=== PATIENT | female | born 1950 | race Caucasian/White ===

== ENCOUNTER → 2016-03-29 | Outpatient (CLI) | payer MEDICARE | LOC: M ADAMS 09:20 | PROVIDERS: ATTEND Nurse Practitioner Family | DX: E11.9 Type 2 diabetes mellitus without complications (principal); E78.2 Mixed hyperlipidemia ==

== ENCOUNTER → 2016-08-19 | Outpatient (REF) | payer MEDICARE ==
[2016-08-19 22:13] LABS: ALBUMIN 3.6 GM/DL (3.2-5.2); ALBUMIN/GLOBULIN RATIO 1.13 (1.00-1.93); ALKALINE PHOSPHATASE 47 U/L (45-117); ALT/SGPT 22 U/L (12-78); ANION GAP 7 MEQ/L (8-16); AST/SGOT 16 U/L (15-37); BILIRUBIN,TOTAL 0.3 MG/DL (0.2-1.0); BLOOD UREA NITROGEN 21 MG/DL (7-18); CALCIUM LEVEL 9.1 MG/DL (8.8-10.2); CARBON DIOXIDE LEVEL 31 MEQ/L (21-32); CHLORIDE LEVEL 103 MEQ/L (98-107); CREATININE FOR GFR 0.94 MG/DL (0.55-1.02); GLOMERULAR FILTRATION RATE > 60.0 (>45); GLUCOSE, FASTING 90 MG/DL (80-110); POTASSIUM SERUM 3.9 MEQ/L (3.5-5.1); SODIUM LEVEL 141 MEQ/L (136-145); TOTAL PROTEIN 6.8 GM/DL (6.4-8.2)
== END ==
LOC: M SFHCPLAZ 14:32
PROVIDERS: ATTEND Nurse Practitioner Family
DX: I10 Essential (primary) hypertension (principal); E11.9 Type 2 diabetes mellitus without complications

== ENCOUNTER → 2017-08-31 | Outpatient (REF) | payer MEDICARE ==
[2017-08-31 13:00] LABS: ALBUMIN 3.9 GM/DL (3.2-5.2); ALBUMIN/GLOBULIN RATIO 1.26 (1.00-1.93); ALKALINE PHOSPHATASE 43 U/L (45-117); ALT/SGPT 21 U/L (12-78); ANION GAP 8 MEQ/L (8-16); AST/SGOT 13 U/L (7-37); BILIRUBIN,TOTAL 0.4 MG/DL (0.2-1.0); BLOOD UREA NITROGEN 21 MG/DL (7-18); CALCIUM LEVEL 9.4 MG/DL (8.8-10.2); CARBON DIOXIDE LEVEL 28 MEQ/L (21-32); CHLORIDE LEVEL 106 MEQ/L (98-107); CHOLESTEROL LEVEL 218 MG/DL (<200); CHOLESTEROL RISK RATIO 3.694 (<5); CREATININE FOR GFR 0.87 MG/DL (0.55-1.30); FREE T4 1.26 NG/DL (0.76-1.46); GLOMERULAR FILTRATION RATE > 60.0 (>45); GLUCOSE, FASTING 99 MG/DL (70-100); HDL CHOLESTEROL 59 MG/DL (>40); LDL CHOLESTEROL 132.2 MG/DL (<100); NON-HDL-C 159 MG/DL; POTASSIUM SERUM 4.3 MEQ/L (3.5-5.1); SODIUM LEVEL 142 MEQ/L (136-145); TRIGLYCERIDES LEVEL 134 MG/DL (<150)
[2017-08-31 13:25] LABS: MALB URINE SIEMENS 49.2 MG/L
[2017-08-31 13:43] LABS: ESTIMATED AVERAGE GLUCOSE 131 MG/DL (60-110); HEMOGLOBIN A1c 6.2 %
== END ==
LOC: M SFHCADAM 07:58
DX: E11.9 Type 2 diabetes mellitus without complications (principal); E03.9 Hypothyroidism, unspecified; E78.2 Mixed hyperlipidemia; E55.9 Vitamin D deficiency, unspecified
CPT/HCPCS: 84443

== ENCOUNTER → 2017-09-30 | Outpatient (CLI) | payer MEDICARE ==
[2017-09-30 11:01] LABS: HEMATOCRIT 42.5 % (36.0-47.0); HEMOGLOBIN 14.4 g/dl (12.0-15.5); MEAN CORPUSCULAR HEMOGLOBIN 30.3 pg (27.0-33.0); MEAN CORPUSCULAR HGB CONC 33.9 g/dl (32.0-36.5); MEAN CORPUSCULAR VOLUME 89.3 fl (80.0-96.0); PLATELET COUNT, AUTOMATED 232 10^3/uL (150-450); RED BLOOD COUNT 4.76 10^6/uL (4.00-5.40); RED CELL DISTRIBUTION WIDTH 13.7 % (11.5-14.5); WHITE BLOOD COUNT 8.2 10^3/uL (4.0-10.0)
[2017-09-30 11:19] LABS: INR 1.03; PROTHROMBIN TIME 13.6 SECONDS (12.1-14.4)
[2017-09-30 11:21] LABS: ERYTHROCYTE SEDIMENTATION RATE 7 mm/hr (0-30)
[2017-09-30 11:32] LABS: ALBUMIN/GLOBULIN RATIO 1.21 (1.00-1.93); ALKALINE PHOSPHATASE 38 U/L (45-117); ALT/SGPT 21 U/L (12-78); ANION GAP 9 MEQ/L (8-16); AST/SGOT 17 U/L (7-37); BILIRUBIN,TOTAL 0.6 MG/DL (0.2-1.0); BLOOD UREA NITROGEN 22 MG/DL (7-18); CALCIUM LEVEL 9.2 MG/DL (8.8-10.2); CARBON DIOXIDE LEVEL 28 MEQ/L (21-32); CHLORIDE LEVEL 105 MEQ/L (98-107); CREATININE FOR GFR 0.74 MG/DL (0.55-1.30); GLOMERULAR FILTRATION RATE > 60.0 (>45); GLUCOSE, FASTING 101 MG/DL (70-100); POTASSIUM SERUM 3.6 MEQ/L (3.5-5.1); SODIUM LEVEL 142 MEQ/L (136-145); TOTAL PROTEIN 7.3 GM/DL (6.4-8.2)
== END ==
LOC: M ADMPAT 09:18
DX: Z01.818 Encounter for other preprocedural examination (principal); M17.12 Unilateral primary osteoarthritis, left knee; I10 Essential (primary) hypertension; E11.9 Type 2 diabetes mellitus without complications; E03.9 Hypothyroidism, unspecified
CPT/HCPCS: 71046

== ENCOUNTER → 2017-10-07 | Outpatient (REF) | payer MEDICARE | LOC: M SFHCPLAZ 14:26 | DX: Z01.818 Encounter for other preprocedural examination (principal); M17.12 Unilateral primary osteoarthritis, left knee; I48.91 Unspecified atrial fibrillation | CPT/HCPCS: 84443 ==

== ENCOUNTER → 2017-10-11 | Outpatient (CLI) | payer MEDICARE | LOC: M CARPUL 11:51 | DX: I48.91 Unspecified atrial fibrillation (principal) | CPT/HCPCS: 93306 ==

== ENCOUNTER → 2017-10-27 | Outpatient (CLI) | payer MEDICARE ==
[2017-10-27 16:09] LABS: BASO # 0.1 10^3/uL (0.0-0.2); BASO % 1.1 % (0.0-1.0); EOS # 0.2 10^3/uL (0.0-0.50); HEMATOCRIT 40.9 % (36.0-47.0); HEMOGLOBIN 13.7 g/dl (12.0-15.5); IMMATURE GRANULOCYTE % 0.5 % (0-3.0); LYMPH # 2.6 10^3/uL (1.5-4.5); LYMPH % 31.3 % (24.0-44.0); MEAN CORPUSCULAR HEMOGLOBIN 30.5 pg (27.0-33.0); MEAN CORPUSCULAR HGB CONC 33.5 g/dl (32.0-36.5); MEAN CORPUSCULAR VOLUME 91.1 fl (80.0-96.0); MONO # 0.7 10^3/uL (0.0-0.8); MONO % 7.9 % (0.0-5.0); NEUTROPHILS # 4.7 10^3/uL (1.8-7.7); NEUTROPHILS % 57.2 % (36.0-66.0); PLATELET COUNT, AUTOMATED 207 10^3/uL (150-450); RED BLOOD COUNT 4.49 10^6/uL (4.00-5.40); RED CELL DISTRIBUTION WIDTH 13.9 % (11.5-14.5); WHITE BLOOD COUNT 8.2 10^3/uL (4.0-10.0)
[2017-10-27 16:23] LABS: D-DIMER QUANT 371.9 ng/ml (<500)
[2017-10-27 16:29] LABS: C REACTIVE PROTEIN QUANTITATIV < 0.30 MG/DL (0.00-0.30)
[2017-10-27 16:29] LABS: TROPONIN I < 0.02 NG/ML (< 0.10)
== END ==
LOC: M ADAMS 14:24
DX: R07.2 Precordial pain (principal)
CPT/HCPCS: 84484

== ENCOUNTER → 2017-11-02 | Outpatient (CLI) | payer MEDICARE | LOC: M SLEEP HO 10:56 | DX: G47.9 Sleep disorder, unspecified (principal); R40.0 Somnolence; R06.83 Snoring | CPT/HCPCS: G0399 ==

== ENCOUNTER → 2018-02-01 | Outpatient (REF) | payer MEDICARE ==
[2018-02-01 12:21] LABS: ANION GAP 7 MEQ/L (8-16); BLOOD UREA NITROGEN 24 MG/DL (7-18); CALCIUM LEVEL 9.4 MG/DL (8.8-10.2); CARBON DIOXIDE LEVEL 29 MEQ/L (21-32); CHLORIDE LEVEL 104 MEQ/L (98-107); CREATININE FOR GFR 0.77 MG/DL (0.55-1.30); FREE T4 1.12 NG/DL (0.76-1.46); GLOMERULAR FILTRATION RATE > 60.0 (>45); GLUCOSE, FASTING 92 MG/DL (70-100); SODIUM LEVEL 140 MEQ/L (136-145); TOTAL 25(OH) VITAMIN D 27.7 NG/ML (30.0-100.0)
[2018-02-01 13:05] LABS: ESTIMATED AVERAGE GLUCOSE 123 MG/DL (60-110); HEMOGLOBIN A1c 5.9 %
== END ==
LOC: M SFHCPLAZ 09:54
DX: E03.9 Hypothyroidism, unspecified (principal); I10 Essential (primary) hypertension; E55.9 Vitamin D deficiency, unspecified; E11.9 Type 2 diabetes mellitus without complications; E66.01 Morbid (severe) obesity due to excess calories; Z68.37 Body mass index [BMI] 37.0-37.9, adult
CPT/HCPCS: 84443

== ENCOUNTER → 2018-04-01 | Outpatient (CLI) | payer MEDICARE ==
[~2018-04-01] MED LIST: ATEN50TA2 PO; ATOR40TA75 PO; BUPR150T3 PO; CHLO25TA PO; COQ1100C PO; ELIQ5TAB PO; IBUP200C25 PO; LISI10TA4 PO; PRAV40TA2 PO; SUPETAB25 PO; SYNT150T PO; TRAM50TA2 PO; TYLE500T78 PO; VITA-176 PO
[2018-04-01 12:40] LABS: HEMATOCRIT 43.5 % (36.0-47.0); HEMOGLOBIN 14.5 g/dl (12.0-15.5); MEAN CORPUSCULAR HEMOGLOBIN 30.4 pg (27.0-33.0); MEAN CORPUSCULAR HGB CONC 33.3 g/dl (32.0-36.5); MEAN CORPUSCULAR VOLUME 91.2 fl (80.0-96.0); PLATELET COUNT, AUTOMATED 250 10^3/uL (150-450); RED BLOOD COUNT 4.77 10^6/uL (4.00-5.40); WHITE BLOOD COUNT 9.4 10^3/uL (4.0-10.0)
[2018-04-01 12:50] LABS: ALBUMIN 3.9 GM/DL (3.2-5.2); ALT/SGPT 24 U/L (12-78); BILIRUBIN,TOTAL 0.5 MG/DL (0.2-1.0); BLOOD UREA NITROGEN 26 MG/DL (7-18); CALCIUM LEVEL 9.7 MG/DL (8.8-10.2); CARBON DIOXIDE LEVEL 31 MEQ/L (21-32); CHLORIDE LEVEL 103 MEQ/L (98-107); CREATININE FOR GFR 0.91 MG/DL (0.55-1.30); GLOMERULAR FILTRATION RATE > 60.0 (>45); GLUCOSE, FASTING 97 MG/DL (70-100); POTASSIUM SERUM 4.6 MEQ/L (3.5-5.1); SODIUM LEVEL 141 MEQ/L (136-145); TOTAL PROTEIN 7.3 GM/DL (6.4-8.2)
[2018-04-01 13:13] LABS: INR 1.07
[2018-04-01 13:34] LABS: ERYTHROCYTE SEDIMENTATION RATE 9 mm/hr (0-30)
== END ==
LOC: M LABDRWAD 08:57
PROVIDERS: ATTEND Orthopaedic Surgery
DX: M17.12 Unilateral primary osteoarthritis, left knee (principal)

== ENCOUNTER → 2018-04-01 | Outpatient (CLI) | payer MEDICARE ==
--- NOTE | 2018-04-01 09:32 | REP ---
Chest two views HISTORY: Preop Comparison: 09/30/2017 The lungs are clear. The heart is normal in size. The pulmonary vasculature is normal in appearance. The bony structure is intact. IMPRESSION: No acute disease. Electronically Signed by Catarino Redman MD 04/01/2018 09:24 A
== END ==
LOC: M ADAMS 09:02
PROVIDERS: ATTEND Orthopaedic Surgery
DX: Z01.818 Encounter for other preprocedural examination (principal); M17.12 Unilateral primary osteoarthritis, left knee

== ENCOUNTER → 2018-04-01 | Outpatient (CLI) | payer MEDICARE ==
--- NOTE | 2018-04-02 15:43 | ECGEPIP ---
Stationary ECG Study [facility] Test Date: 2018-04-01 Pat Name: ANTOINETTE MCMULLEN Department: Room: - Gender: F Florist Designer: RF : [id number] Requested By: Vivek Soto Order Number: [id number] Reading MD: Garret Cordon Measurements Intervals [place] Rate: 75 P: AR: 0 QRS: -19 QRSD: 94 T: 46 QT: 387 QTc: 432 Interpretive Statements ATRIAL FIBRILLATION LEFT AXIS DEVIATION MINIMAL ST DEPRESSION ABNORMAL RHYTHM ECG NO REMARKABLE CHANGES. PRIOR TRACING ON 09/30/2017 AT 10:45:33 A.M. Electronically Signed On 04-02-2018 15:42:49 EST by Garret Cordon
== END ==
LOC: M EKG 12:29
PROVIDERS: ATTEND Orthopaedic Surgery
DX: Z01.818 Encounter for other preprocedural examination (principal); M17.12 Unilateral primary osteoarthritis, left knee

== ENCOUNTER 2018-04-14 06:59 | Inpatient (IN) | payer MEDICARE ==
--- NOTE | 2018-04-13 10:54 | HPE ---
DATE OF ADMISSION: 04/14/2018 ATTENDING PHYSICIAN: Dr. Vivek Soto CHIEF COMPLAINT: Left knee pain and stiffness. HISTORY: This is a pleasant 67-year-old female patient with progressively worsening left knee pain and stiffness. She has failed to improve with conservative management and has elected for surgery for her continued symptoms. She has consented for left total knee arthroplasty by Dr. Soto. ALLERGIES: - BACTRIM - PENICILLIN - BEER CURRENT MEDICATIONS: - vitamin D3 1000 units two by mouth daily - Astelin 137 mcg spray 2 puffs in each nostril daily as needed - Tylenol Arthritis 650 mg one by mouth twice a day as needed - Tums 500 mg one by mouth daily as needed - levothyroxine 150 mcg one by mouth daily - atenolol 50 mg one by mouth daily - lisinopril 10 mg one by mouth twice a day - apixaban 5 mg one by mouth twice a day - chlorthalidone 25 mg half tablet by mouth daily for elevated blood pressure - bupropion 150 mg of one by mouth daily - tramadol 50 mg one to two by mouth daily as needed - atorvastatin 40 mg one by mouth daily - Coenzyme Q10 one by mouth twice a day PAST MEDICAL HISTORY: 1. Hypertension. 2. Depression. 3. Anxiety. 4. Hyperlipidemia. 5. Degenerative disk disease. 6. Hypothyroid. 7. Gastroesophageal reflux disease. 8. Allergic rhinitis. 9. Type 2 diabetes. 10. Arthritis. 11. History of Lyme disease. 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 13. Atrial fibrillation. 14. Sleep apnea. 15. Pulmonary hypertension. PAST SURGICAL HISTORY: 1. Carpal tunnel release. 2. Right and left hand tendon release. 3. Bowel resection. 4. Breast biopsy. 5. Retinal bleed left eye. 6. Hysterectomy. 7. Colonoscopy. FAMILY HISTORY: Father - heart disease, diabetes, . Mother - heart disease, diabetes, cerebrovascular accident, Alzheimer's, . SOCIAL HISTORY: The patient is a former smoker, does not use alcohol. REVIEW OF SYSTEMS: Denies fever, chills, chest pain, shortness breath, nausea, vomiting, diarrhea, recent upper respiratory or urinary tract infection symptoms. Does report pain in the left knee with weightbearing activities. PHYSICAL EXAMINATION: Weight 232 pounds, height 5 feet 6 inches, temperature 98.2, blood pressure 120/60, pulse 56, respirations 16. The patient is well-developed, well-nourished. Ambulates in the clinic today with a slight limp favoring the left side. She is normocephalic, atraumatic. Neck is supple and nontender with no lymphadenopathy or jugular venous distention (JVD). S1 and S2 auscultated. Lungs: Clear to auscultation bilaterally. Abdomen: Soft, nontender. The left knee shows no obvious deformity. Overlying skin is intact with no erythema, edema or ecchymosis. She has a well perfused left lower extremity. ELECTROCARDIOGRAM (EKG): Noted for atrial fibrillation with controlled ventricular response, left axis deviation, no change from EKG done on 11/14/2017. CHEST X-RAY: No acute cardiopulmonary disease. LABORATORY DATA: ESR 9. White blood count 9.4, red blood count 4.77, hemoglobin 14.5, hematocrit 43.5. PT was 14, INR 1.07. BUN 26 and creatinine 0.91. PREOPERATIVE MEDICAL OPTIMIZATION: Performed by Dr. Andrea and Up reviewed today on the patient's chart. Cardiology clearance also reviewed. ASSESSMENT: Left knee symptomatic osteoarthritis. PLAN: Consented for left total knee arthroplasty by Dr. Vivek Soto.
[~2018-04-14] VITALS: Ht 167.6 cm; Wt 104.3 kg
[2018-04-14] VITALS (8 sets, daily range): BP systolic 106–129; BP diastolic 71–87; O2SAT 97
[~2018-04-14 06:59] MED LIST changes: +BUPIVACAINE HCL 0.25% 30 ML VIAL As Ordered ONE; +BUPIVACAINE LIPOSOME/PF 1.3% 20ML VIAL (13.3MG/ML)(EXPAREL)(C9290 PER1MG) As Ordered ONE; +EPINEPHrine INJ 1 MG/ML 1ML AMP As Ordered ONE; +TRANEXAMIC ACID 100 MG/ML 10ML VIAL As Ordered ONE
[2018-04-14] MEDS ORDERED: CLINDAMYCIN 900 MG in APPROPRIATE DILUENT 1 EA IV ONE (07:00)
[2018-04-14] MEDS ORDERED: LR 1,000 ML IV ONE (07:00)
[2018-04-14] MEDS ORDERED: fentaNYL 100 MCG/2 ML INJECTION (J3010) As Ordered ONE ×2 (08:03→08:50)
[2018-04-14] MEDS ORDERED: MIDAZOLAM INJ 2 MG/2 ML VIAL (J2250) As Ordered ONE ×2 (08:03→08:50)
--- NOTE | 2018-04-14 08:14 | REP ---
Left knee: Four views portably obtained. History: Preop. Findings: There is diffuse osteopenia. There is advanced three compartment osteoarthritis. Anterior tibial spurring is seen on the lateral radiograph and just above this, there is a 11 mm ossific body which may be a loose body. There is a similar sized ossific density posterior to one of the femoral condyles on the lateral film which may be another loose body. Medial compartment joint space narrowing is noted. Electronically Signed by Billy Garcia MD 04/14/2018 08:06 A
[2018-04-14] MEDS ORDERED: LIDOCAINE 2% INJ 100 MG/5 ML SDV (FOR ANES.) As Ordered ONE (08:46)
[2018-04-14] MEDS ORDERED: PROPOFOL 200 MG/20 ML VIAL As Ordered ONE (08:46)
[2018-04-14] MEDS ORDERED: ONDANSETRON 4MG/2ML VIAL (J2405) As Ordered ONE (08:46)
[2018-04-14] MEDS ORDERED: dexameTHASONE 4 MG/ML 1ML VIAL (J1100) As Ordered ONE (08:46)
[2018-04-14] MEDS: MIDAZOLAM INJ 2 MG/2 ML VIAL (J2250) IV PRN ×2 (08:49→08:51)
[2018-04-14] MEDS ORDERED: EPINEPHrine INJ 1 MG/ML 1ML AMP As Ordered ONE (09:39)
[2018-04-14] MEDS ORDERED: ceFAZolin 1GM INJ (J0690 PER 500MG) As Ordered ONE (09:39)
[2018-04-14] MEDS ORDERED: TRANEXAMIC ACID 100 MG/ML 10ML VIAL As Ordered ONE (09:39)
[2018-04-14] MEDS ORDERED: BUPIVACAINE LIPOSOME/PF 1.3% 20ML VIAL (13.3MG/ML)(EXPAREL)(C9290 PER1MG) As Ordered ONE (09:40)
--- NOTE | 2018-04-14 09:42 | IPN ---
DATE: 04/14/2018 Patient seen and examined. She wished to go ahead with a left total knee arthroplasty. She understands the nature of this, the risks of bleeding, infection, damage to nerves, vessels, persistent pain, wear loosening, blood clots, medical problems, , among others. Preop clearance was obtained. She had been delayed from last year because of some cardiac issues.
[2018-04-14] MEDS ORDERED: fentaNYL 100 MCG/2 ML INJECTION (J3010) IV PRN ×2 (09:45→12:45)
[2018-04-14] MEDS ORDERED: CLINDAMYCIN INJ 900MG/6ML VIAL As Ordered ONE (09:47)
[2018-04-14] MEDS ORDERED: MORPHINE 1MG/ML IN 0.9% NACL 100ML IV BAG As Ordered ONE (12:06)
[2018-04-14] MEDS ORDERED: NALOXONE INJ 0.4 MG/1 ML VIAL (J2310) IV PRN (12:30)
[2018-04-14] MEDS ORDERED: ONDANSETRON 4MG/2ML VIAL (J2405) IV PRN ×3 (12:30→12:45)
[2018-04-14] MEDS ORDERED: MORPHINE 1MG/ML IN 0.9% NACL 100ML IV BAG IV PRN (12:30)
[2018-04-14] MEDS ORDERED: EPIDURAL/PCA KEYS XX PRN (12:30)
[2018-04-14] MEDS ORDERED: NALBUPHINE HCL 10 MG/ML AMP (J2300) IV PRN (12:30)
[2018-04-14] MEDS ORDERED: diphenhydrAMINE INJ 50MG/ML VIAL (J1200) IV PRN (12:30)
--- NOTE | 2018-04-14 12:38 | REP ---
Left knee series: Two views. History: Postop. Comparison left knee radiographs April 14, 2018. Findings: Anterior skin elizabeth are seen. Left knee arthroplasty components are seen in good alignment. Periarticular soft tissue emphysema is seen. Postop. Impression: Status post left knee arthroplasty. Electronically Signed by Billy Garcia MD 04/14/2018 12:29 P
[2018-04-14] MEDS ORDERED: ACETAMINOPHEN TAB 650MG DOSE (2X325MG) PO PRN (12:45)
[2018-04-14] MEDS ORDERED: MORPHINE 10 MG/ML 1ML VIAL (J2270) IV PRN (12:45)
[2018-04-14] MEDS ORDERED: FLEET ENEMA PR PRN (12:45)
[2018-04-14] MEDS ORDERED: LR 1,000 ML IV SCH (12:45)
[2018-04-14] MEDS: LR 1,000 ML IV SCH (13:30)
[2018-04-14] MEDS: CLINDAMYCIN 900 MG in APPROPRIATE DILUENT 1 EA IV SCH (18:56)
[2018-04-14] MEDS ORDERED: traMADol 50 MG TAB PO PRN (20:15)
[2018-04-14] MEDS: LISINOPRIL 10 MG TAB PO SCH (20:46)
[2018-04-14] MEDS ORDERED: APIXABAN 5 MG TAB (ELIQUIS) PO SCH (21:00)
--- NOTE | 2018-04-15 00:34 | CR ---
DATE OF CONSULTATION: 04/14/2018 A 67-year-old female with past medical history of hypertension, hyperlipidemia, diabetes, atrial fibrillation, pulmonary hypertension, osteoarthritis of the left knee, who presents to the hospitalization for left total knee replacement, done successfully this afternoon. REASON FOR MEDICAL CONSULTATION: Postoperative medical management. The patient is doing very well at this time, is pain free. Denies any chest pain, shortness of breath, abdominal pain, nausea, vomiting, vertigo, headache. PAST MEDICAL HISTORY: Hypertension. Depression. Anxiety. Hyperlipidemia. Degenerative disc disease. Hypothyroidism. Gastroesophageal reflux disease (GERD). Type 2 diabetes. History of atrial fibrillation. Sleep apnea. Pulmonary hypertension. PAST SURGICAL HISTORY: Carpal tunnel release. Right and left hand tendon release. Bowel resection. Breast biopsy. Retinal bleed in the left eye. Hysterectomy. ALLERGIES: She has drug allergies to NONSTEROIDAL ANTI-INFLAMMATORY DRUGS (NSAIDS), PENICILLIN, and PENICILLIN CROSS REACTORS, SULFA DRUGS. FAMILY HISTORY: Noncontributory. SOCIAL HISTORY: The patient used to smoke heavily, quit many years ago. Denies alcohol or illicit drugs. MEDICATIONS: She takes at home are as follows: - Tylenol 500 mg orally four times a day - apixaban 5 mg orally twice daily - atenolol 50 mg orally daily - atorvastatin 40 mg orally three times a week - bupropion 150 mg orally daily - chlorthalidone 12.5 mg orally daily - cholecalciferol 1000 units orally daily - Coenzyme Q 100 mg orally daily - Synthroid 150 mcg orally daily - lisinopril 10 mg orally twice daily - tramadol 50 mg orally three times a day REVIEW OF SYSTEMS: Negative all ten major systems except what has been mentioned in the history of the present illness. Vital Signs: Blood pressure is 122/80, heart rate is 92, regular, respiratory rate is 15, temperature is 97.1, oxygen saturation 99% on room air. Head is atraumatic, normocephalic. Neck supple. No jugular venous distention (JVD). Lungs are clear to auscultation. S1, S2 audible, No murmurs appreciated. Abdomen: Soft, positive bowel sounds. No pedal edema. Neurologic Examination: Patient awake, alert, oriented times three. There are no labs to review at this time. IMPRESSION: 1. Left total knee replacement. 2. Atrial fibrillation. 3. Hypertension. 4. Diabetes. PLAN: The patient at this time is medically stable. All medications have been reconciled by me. Pain management will be referred to the orthopedic surgeon. At this time, there are no other medical recommendations. Will continue following alongside orthopedics.
[2018-04-15 02:00] VITALS: BP 114/55
[2018-04-15] MEDS: LR 1,000 ML IV SCH (02:05)
[2018-04-15] MEDS: CLINDAMYCIN 900 MG in APPROPRIATE DILUENT 1 EA IV SCH (03:29)
[2018-04-15 06:00] VITALS: BP 114/66
[2018-04-15] MEDS ORDERED: LEVOTHYROXINE 150MCG TABLET (0.15MG) PO SCH (06:00)
[2018-04-15 06:49] LABS: HEMATOCRIT 39.5 % (36.0-47.0); HEMOGLOBIN 12.7 g/dl (12.0-15.5); MEAN CORPUSCULAR HEMOGLOBIN 29.2 pg (27.0-33.0); MEAN CORPUSCULAR HGB CONC 32.2 g/dl (32.0-36.5); MEAN CORPUSCULAR VOLUME 90.8 fl (80.0-96.0); PLATELET COUNT, AUTOMATED 242 10^3/uL (150-450); RED BLOOD COUNT 4.35 10^6/uL (4.00-5.40); WHITE BLOOD COUNT 16.7 10^3/uL (4.0-10.0)
[2018-04-15 07:05] LABS: INR 1.15; PROTHROMBIN TIME 14.8 SECONDS (12.1-14.4)
[2018-04-15 07:10] LABS: BLOOD UREA NITROGEN 24 MG/DL (7-18); CALCIUM LEVEL 8.9 MG/DL (8.8-10.2); CARBON DIOXIDE LEVEL 27 MEQ/L (21-32); CHLORIDE LEVEL 104 MEQ/L (98-107); CREATININE FOR GFR 0.96 MG/DL (0.55-1.30); GLOMERULAR FILTRATION RATE > 60.0 (>45); GLUCOSE, FASTING 132 MG/DL (70-100); POTASSIUM SERUM 3.9 MEQ/L (3.5-5.1); SODIUM LEVEL 140 MEQ/L (136-145)
[2018-04-15] MEDS ORDERED: PERC5TAB12 PO (07:40)
[2018-04-15] MEDS: LISINOPRIL 10 MG TAB PO SCH (08:27)
[2018-04-15 08:28] VITALS: BP 114/66
[2018-04-15] MEDS: SENOKOT S TAB PO SCH ×2 (08:28→08:38)
[2018-04-15] MEDS: MOM 30ML SUSPENSION UDC PO SCH ×2 (08:28→08:37)
[2018-04-15] MEDS ORDERED: MIRALAX *UNIT DOSE* 17GM PACKET PO SCH (09:00)
[2018-04-15] MEDS ORDERED: APIXABAN 5 MG TAB (ELIQUIS) PO SCH (09:00)
[2018-04-15] MEDS ORDERED: ATENOLOL 50 MG TAB PO SCH (09:00)
[2018-04-15 10:00] VITALS: BP 120/65
[2018-04-15] MEDS ORDERED: PERCOCET 5MG/325MG TAB PO PRN ×2 (11:30)
--- NOTE | 2018-04-15 18:08 | IPNPDOC ---
Subjective Date Seen The patient was seen on 04/15/18. Subjective Chief Complaint/HPI Elective Total Knee replacement Events since last encounter No complaints this am except for appropriate pain at the surgical site. No fever ro chhills, no cough or phlegm , no chest pain or sob , no abdominal pain , vomiting or diarrhea. Objective Physical Examination General Exam: Positive: Alert, Cooperative, No Acute Distress Eye Exam: Positive: PERRLA, Conjunctiva & lids normal, EOMI; Negative: Sclera icteric ENT Exam: Positive: Atraumatic, Mucous membr. moist/pink, Pharynx Normal Neck Exam: Positive: Supple; Negative: JVD, thyromegaly Chest Exam: Positive: Clear to auscultation, Normal air movement Heart Exam: Positive: Rate Normal, Regular Rhythm, Normal S1, Normal S2; Negative: Murmurs, Rubs Abdomen Exam: Positive: Normal bowel sounds, Soft; Negative: Tenderness, Hepatospenomegaly Extremity Exam: Positive: Normal pulses; Negative: Clubbing, Cyanosis, Edema Skin Exam: Positive: Nl turgor and temperature; Negative: Rash, Breakdown Assessment /Plan Problems (1) S/P knee replacement Status: Acute Problem Text: elective Left TKR for advanced osteoarthritis pain control as per ortho restart eliquis (2) Atrial fibrillation Status: Chronic Problem Text: continue eliquis (3) Hypertension Status: Chronic Problem Text: continue home meds. 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 All th etiologies were thought to be embolic events. Though etiology was never found at those times. Patient may have had paroxysmal atrial fibrillation for many years cusing the thromboembolic events just recently d iagnosed last year during preoperative ekg. (11) Pulmonary hypertension Plan/VTE VTE Prophylaxis Ordered?: Yes VS, I&O, 24H, Fishbone Vital Signs/I&O Vital Signs Date Time Temp Pulse Resp B/P (MAP) Pulse Ox O2 Delivery O2 Flow Rate FiO2 04/15/18 06:00 98.3 95 18 114/66 (82) 95 Room Air 04/14/18 21:00 2.0 I&O- Last 24 Hours up to 6 AM 04/15/18 06:00 Intake Total 3785 ml Output Total 2200 ml Balance 1585 ml Laboratory Data 24H LABS Laboratory Tests 2 04/15/18 06:02: Nucleated Red Blood Cells % (auto) 0.0, Prothrombin Time 14.8H, Prothromb Time International Ratio 1.15, Anion Gap 9, Glomerular Filtration Rate > 60.0, Blood Urea Nitrogen 24H, Creatinine 0.96, Sodium Level 140, Potassium Level 3.9, Chloride Level 104, Carbon Dioxide Level 27, Calcium Level 8.9 CBC/BMP Laboratory Tests 04/15/18 06:02 Red Blood Count 4.35, Mean Corpuscular Volume 90.8, Mean Corpuscular Hemoglobin 29.2, Mean Corpuscular Hemoglobin Concent 32.2, Red Cell Distribution Width 14.3, Calcium Level 8.9 JENN LIND MD Apr 15, 2018 07:34
--- NOTE | 2018-04-15 20:35 | IPN ---
DATE: 04/15/2018 CHIEF COMPLAINT: Postoperative day 1, left total knee arthroplasty. HISTORY OF PRESENT ILLNESS: This 67-year-old female had a left total knee arthroplasty and is seen today in hospital postoperative day 1. This was performed by Dr. Vivek Soto. There were no complications of the procedure. She is seen today in the hospital and is pleasant, in a good mood. No concerns from her. She is up in the washroom. No nursing concerns voice either. PHYSICAL EXAMINATION: Temperature 97.0, blood pressure (BP) 114/55, pulse rate 84, 98% on NIPPV. Alert and oriented times three. Pleasant affect. The left lower extremity was wrapped up in tensor/Ricardo bandage. She had normal sensations throughout the foot, the dorsum and the plantar aspect. The nerve block had already worn off. Foot was warm and well perfused with strong pedal pulses. She is able to dorsiflex and plantar flex her foot. LABORATORY EXAMINATION: No blood work performed yet this morning. ASSESSMENT AND PLAN: This 67-year-old female is postoperative day 1 from left total knee arthroplasty and so far is doing well. We encouraged her to mobilize. She could be discharged home today if she feels up to it and is mobilizing appropriately. Will followup on the postoperative day 1 blood work. She is on Eliquis 5 mg by mouth twice a day for deep vein thrombosis (DVT) prophylaxis.
--- NOTE | 2018-04-17 14:28 | RO ---
DATE OF PROCEDURE: 04/14/2018 PREOPERATIVE DIAGNOSIS: Left knee osteoarthritis. POSTOPERATIVE DIAGNOSIS: Left knee osteoarthritis. PROCEDURE: Left total knee arthroplasty using Attune posterior stabilized size 6 femur, size 5 tibial tray, 8 polyethylene, and a 35 patellar button. SURGEON: Vivek Soto MD FISH PITCHER: Jordy Richards PA-C ANESTHESIA: Spinal ESTIMATED BLOOD LOSS (EBL): 50. COMPLICATIONS: None. INDICATIONS: This is a 67-year-old woman with obesity who has had gradually worsening left knee pain with severe arthritis. She eventually got a medical clearance and wished to go ahead with surgical treatment. She understood the nature of the procedure, the risks of bleeding, infection, damage to nerves, vessels, persistent pain, wear loosening, blood clots, medical problems, , among others. DESCRIPTION OF PROCEDURE: The patient was taken to the operating room and placed in supine position after spinal anesthesia was induced. The left lower extremity was prepped and draped in the usual sterile fashion. The tourniquet had been inflated after a time-out was performed. I then created a longitudinal incision over the anterior aspect of the knee. Sharp dissection was carried down through subcutaneous tissue. I then performed a medial parapatellar arthrotomy per routine. The patella was everted. I used the canal-initiating reamer on the femoral side and used the intramedullary guide set at 5 degrees of valgus at 10 mm cut. She did have a slight flexion contracture, so I took a little bit extra on the femur. The femoral cutting guide was pinned in place. The distal femoral cut was made. I then sized the femur to be a 6. The cutting block was secured in place, and the remaining cuts were made. I then prepared the tibia. The tibial alignment guide was then placed, the appropriate amount of valgus and posterior slope, and the proximal tibia cut was made taking 4 mm off the medial side. She did have advanced medial compartment arthritis with [id number] contact, some varus and fairly significant patellofemoral arthritis. I then used the crusher and blender operator to remove soft tissue and osteophytes from either side of the knee. We used the spacer blocks at this point and determined between either an 8 and a 10 for the polyethylene. I then also removed a small amount of bone from the anterior distal aspect of the femur to allow for the trochlear groove. The tibial surface was repaired with the size 5 tray. which fit nicely. It was drilled and broached. We then placed the trial components and was not very pleased with the flexion with the femoral component. It tended to extrude with full flexion. I tried releasing a little bit of the posterior cruciate ligament (PCL) but was afraid that the PCL had been somewhat contracted with her flexion contracture. At this point, I elected to go ahead with the posterior stabilized. The box cut was made. I then placed the trial components and was much more pleased with the fit and alignment. The femoral component fit very nicely and was no longer tending to pop off in flexion. A size 8 polyethylene seemed to be the most appropriate in flexion and extension with excellent tissue balance and alignment. I then prepared the patellar. The freehand cut removing about 7 mm of bone, sized to be a 35. Drill holes were placed. I placed the drill holes in the end of the femur. The patella was placed. The patella tracked. I then removed the trial components, irrigated copiously, placed the Exparel solution deep in the wound, and dried the bony surfaces. The virtual customer assistant prepared the bone cement in the modern technique on the back table. I then cemented on the tibial tray, impacted it in place, cemented on the femoral component, impacted it in place, removed excess bone cement, placed the polyethylene, which was the posterior stabilized size 8 x 6 poly. Brought the knee out in extension and cemented on the patellar component, removed excess bone cement, irrigated, placed the tranexamic acid (TXA) solution deep in the wound, and then began deep wound closure. Once the cement had hardened, I removed the patellar clamp and again copiously irrigated the deep tissues. I then continued to close with the Stratafix suture in both directions running, and this obtained a watertight closure. I irrigated again, closed the subcutaneous with 2-0 Vicryl, the skin with elizabeth. The tourniquet was deflated. Sterile dressing was applied, and she was taken to the recovery room in stable condition. There were no known complications. The plan will be routine postoperative. The virtual customer assistant was instrumental in holding retractors and assisting in mixing the bone cement and in wound closure.
== END 2018-04-15 12:25 | disposition home health service (06) | DRG 470 ==
LOC: M OR 06:59 → M MS5PR 13:06
PROVIDERS: ADMIT Orthopaedic Surgery; ATTEND Orthopaedic Surgery
PROC: 0SRD0J9 Replacement of Left Knee Joint with Synthetic Substitute, Cemented, Open Approach (ICD-10-PCS; principal; 2018-04-14 09:30)
DX: M17.12 Unilateral primary osteoarthritis, left knee (principal); Z88.0 Allergy status to penicillin; Z88.8 Allergy status to other drugs, medicaments and biological substances; Z91.048 Other nonmedicinal substance allergy status; Z79.899 Other long term (current) drug therapy; I10 Essential (primary) hypertension; F32.9 Major depressive disorder, single episode, unspecified; F41.9 Anxiety disorder, unspecified; E78.5 Hyperlipidemia, unspecified; E03.9 Hypothyroidism, unspecified; K21.9 Gastro-esophageal reflux disease without esophagitis; E11.9 Type 2 diabetes mellitus without complications; I48.91 Unspecified atrial fibrillation; G47.00 Insomnia, unspecified; I27.20 Pulmonary hypertension, unspecified; J30.9 Allergic rhinitis, unspecified; Z86.711 Personal history of pulmonary embolism

== ENCOUNTER → 2018-05-10 | Outpatient (REF) | payer MEDICARE ==
[~2018-05-10] MED LIST changes: -BUPIVACAINE HCL 0.25% 30 ML VIAL As Ordered ONE; -BUPIVACAINE LIPOSOME/PF 1.3% 20ML VIAL (13.3MG/ML)(EXPAREL)(C9290 PER1MG) As Ordered ONE; -EPINEPHrine INJ 1 MG/ML 1ML AMP As Ordered ONE; +PERC5TAB12 PO; -TRANEXAMIC ACID 100 MG/ML 10ML VIAL As Ordered ONE
[2018-05-10 13:00] LABS: HEMOGLOBIN A1c 6.2 %
[2018-05-10 13:01] LABS: BLOOD UREA NITROGEN 16 MG/DL (7-18); CALCIUM LEVEL 9.2 MG/DL (8.8-10.2); CARBON DIOXIDE LEVEL 27 MEQ/L (21-32); CHLORIDE LEVEL 102 MEQ/L (98-107); FREE T4 1.32 NG/DL (0.76-1.46); GLOMERULAR FILTRATION RATE > 60.0 (>45); GLUCOSE, FASTING 104 MG/DL (70-100); SODIUM LEVEL 138 MEQ/L (136-145)
[2018-05-10 13:15] LABS: TOTAL 25(OH) VITAMIN D 36.4 NG/ML (30.0-100.0)
== END ==
LOC: M SFHCPLAZ 08:51
PROVIDERS: ATTEND Nurse Practitioner Family
DX: I10 Essential (primary) hypertension (principal); E03.9 Hypothyroidism, unspecified; E55.9 Vitamin D deficiency, unspecified; E11.9 Type 2 diabetes mellitus without complications

== ENCOUNTER → 2018-05-10 | Outpatient (CLI) | payer MEDICARE ==
[2018-05-10 12:39] LABS: HEMATOCRIT 40.7 % (36.0-47.0); HEMOGLOBIN 13.2 g/dl (12.0-15.5); MEAN CORPUSCULAR HEMOGLOBIN 29.6 pg (27.0-33.0); MEAN CORPUSCULAR HGB CONC 32.4 g/dl (32.0-36.5); MEAN CORPUSCULAR VOLUME 91.3 fl (80.0-96.0); PLATELET COUNT, AUTOMATED 285 10^3/uL (150-450); RED BLOOD COUNT 4.46 10^6/uL (4.00-5.40); WHITE BLOOD COUNT 6.9 10^3/uL (4.0-10.0)
[2018-05-10 12:57] LABS: ALBUMIN 3.9 GM/DL (3.2-5.2); ALT/SGPT 24 U/L (12-78); BILIRUBIN,TOTAL 0.6 MG/DL (0.2-1.0); BLOOD UREA NITROGEN 17 MG/DL (7-18); CALCIUM LEVEL 9.3 MG/DL (8.8-10.2); CARBON DIOXIDE LEVEL 28 MEQ/L (21-32); CHLORIDE LEVEL 102 MEQ/L (98-107); CHOLESTEROL LEVEL 129 MG/DL (<200); CHOLESTEROL RISK RATIO 2.263 (<5); CREATININE FOR GFR 0.86 MG/DL (0.55-1.30); GLOMERULAR FILTRATION RATE > 60.0 (>45); GLUCOSE, FASTING 97 MG/DL (70-100); HDL CHOLESTEROL 57 MG/DL (>40); LDL CHOLESTEROL 51 MG/DL (<100); NON-HDL-C 72 MG/DL; NT-PRO BNP 466 PG/ML (<125); POTASSIUM SERUM 4.4 MEQ/L (3.5-5.1); SODIUM LEVEL 139 MEQ/L (136-145); TOTAL PROTEIN 7.4 GM/DL (6.4-8.2); TRIGLYCERIDES LEVEL 104 MG/DL (<150)
== END ==
LOC: M ADAMS 08:43
PROVIDERS: ATTEND Internal Medicine Cardiovascular Disease
DX: I11.9 Hypertensive heart disease without heart failure (principal); I48.1 Persistent atrial fibrillation; Z68.37 Body mass index [BMI] 37.0-37.9, adult; E03.9 Hypothyroidism, unspecified; E55.9 Vitamin D deficiency, unspecified; E11.9 Type 2 diabetes mellitus without complications

== ENCOUNTER → 2018-07-31 | Outpatient (REF) | payer MEDICARE ==
[2018-07-31 13:08] LABS: ALT/SGPT 27 U/L (12-78); BILIRUBIN,TOTAL 0.5 MG/DL (0.2-1.0); BLOOD UREA NITROGEN 25 MG/DL (7-18); CALCIUM LEVEL 9.5 MG/DL (8.8-10.2); CARBON DIOXIDE LEVEL 29 MEQ/L (21-32); CHLORIDE LEVEL 109 MEQ/L (98-107); CHOLESTEROL LEVEL 149 MG/DL (<200); CHOLESTEROL RISK RATIO 2.223 (<5); CREATININE FOR GFR 0.89 MG/DL (0.55-1.30); FREE T4 1.26 NG/DL (0.76-1.46); GLOMERULAR FILTRATION RATE > 60.0 (>45); GLUCOSE, FASTING 108 MG/DL (70-100); HDL CHOLESTEROL 67 MG/DL (>40); LDL CHOLESTEROL 64 MG/DL (<100); NON-HDL-C 82 MG/DL; POTASSIUM SERUM 4.5 MEQ/L (3.5-5.1); SODIUM LEVEL 142 MEQ/L (136-145); TRIGLYCERIDES LEVEL 88 MG/DL (<150)
[2018-07-31 13:31] LABS: CREATININE, URINE 87.4 MG/DL; MALB URINE SIEMENS 7.5 MG/L; MAU/CREAT RATIO 8.5 MCG/MG (0.0-30.0)
[2018-07-31 14:07] LABS: TOTAL 25(OH) VITAMIN D 44.7 NG/ML (30.0-100.0)
[2018-07-31 14:12] LABS: HEMOGLOBIN A1c 6.1 %
== END ==
LOC: M SFHCADAM 07:51
PROVIDERS: ATTEND Nurse Practitioner Family
DX: E11.9 Type 2 diabetes mellitus without complications (principal); E03.9 Hypothyroidism, unspecified; E78.2 Mixed hyperlipidemia; E55.9 Vitamin D deficiency, unspecified

== ENCOUNTER → 2018-10-05 | Outpatient (CLI) | payer MEDICARE ==
--- NOTE | 2018-10-10 10:36 | SLEEPCENT ---
DATE OF PROCEDURE: 10/05/2018 ORDERING PROVIDER: Ordered by Mustapha Hamm PA-C, copy to Dr. Niurka Garcia. INTERPRETATION: Nocturnal polysomnography was performed for the titration of pressure therapy in this patient with obstructive sleep apnea syndrome based on clinical evaluation confirmed by home testing revealing a respiratory event index of 28. For testing a [employer] full face mask of large size was used, 4 cm of water pressure was initially applied to the circuit and the lights were extinguished. 8 hours and 25 minutes of data were reviewed. There were 413.5 minutes of sleep identified. Sleep latency was prolonged at 42.5 minutes. Rapid eye movement (REM) latency was normal at 62.5 minutes. Sleep architecture was good with four REM cycles. Overall sleep efficiency 82.8%. The electrocardiogram showed atrial fibrillation with controlled ventricular response rate of 66 beats per minute. EEG showed reasonably normal waveforms for awake and sleep. Respiratory events were fully palliated with CPAP at a pressure of 11. Some limb activity was noted particularly early in the study. Limb movement arousal index was only 4.9. IMPRESSION: Obstructive sleep apnea syndrome (G47.33) RECOMMENDATIONS: Nightly use of pressure therapy 11 cm of water.
== END ==
LOC: M SLEEP 19:39
PROVIDERS: ATTEND Physician Assistant
DX: G47.33 Obstructive sleep apnea (adult) (pediatric) (principal)

== ENCOUNTER → 2018-11-09 | Outpatient (CLI) | payer MEDICARE ==
--- NOTE | 2018-11-09 11:04 | REPMRS ---
Patient History The patient states she had a clinical breast exam in 09/2018. Patient is postmenopausal. Family history of colorectal cancer at age 50 or over in maternal grandmother. Digital Woman Screen Mammo: November 09, 2018 - Exam #: [id number] Bilateral CC and MLO view(s) were taken. Technologist: Latha Ramesh Technologist Prior study comparison: July 22, 2011, digital woman screen mammo performed at [facility]. February 27, 2004, bilateral screening mammogram performed at [facility]. FINDINGS: The breast tissue is almost entirely fat. There has been no change in the appearance of the mammogram from the prior studies. There is no interval development of dominant mass, architectural distortion, or grouped microcalcification typical of malignancy. 3-D tomosynthesis shows no additional findings. Assessment: BI-RADS/ACR category 1 mammogram. Negative Mammogram. Recommendation Routine screening mammogram of both breasts in 1 year (for women over age 40). This patient's Lifetime Breast Cancer RIsk is estimated at 5.9 %. This mammogram was interpreted with the aid of an FDA-approved computer-aided dectection system. Electronically Signed By: Lazaro Garcia MD 11/09/18 0370
== END ==
LOC: M WHC 07:25
PROVIDERS: ATTEND Nurse Practitioner Family
DX: Z12.31 Encounter for screening mammogram for malignant neoplasm of breast (principal)